=== PATIENT | male | born 1970 | race Caucasian/White ===

== ENCOUNTER 2019-10-17 17:37 | Emergency (ER) | payer OTHER ==
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
[2019-10-17 19:30] VITALS: BP 160/90; PULSE 74; O2SAT 97
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
== END 2019-10-17 19:34 | disposition home or self-care (01) ==
LOC: ED 17:37
DX: S16.1XXA Strain of muscle, fascia and tendon at neck level, initial encounter (principal); M47.892 Other spondylosis, cervical region; V53.5XXA Driver of pick-up truck or van injured in collision with car, pick-up truck or van in traffic accident, initial encounter; Y93.9 Activity, unspecified
CPT/HCPCS: 71045; 72125; 99284

== ENCOUNTER 2022-09-25 16:12 | Emergency (ER) | payer OTHER ==
[2022-09-25 16:18] VITALS: RESP 20; O2SAT 96
[2022-09-25 17:23] VITALS: BP 167/82; PULSE 81; TEMP 97.8
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
== END 2022-09-25 17:51 | disposition home or self-care (01) ==
LOC: ED 16:12
DX: S16.1XXA Strain of muscle, fascia and tendon at neck level, initial encounter (principal); V87.7XXA Person injured in collision between other specified motor vehicles (traffic), initial encounter; Z28.310 Unvaccinated for COVID-19
CPT/HCPCS: 72040; 99285